=== PATIENT | male | born 1990 | race Caucasian/White ===

== ENCOUNTER 2023-11-04 15:21 | Emergency (ER) | payer SELFPAY ==
[2023-11-04 15:38] LABS: BASOPHILS ABSOLUTE AUTO 0.07 K/uL (0.00-0.20); BASOPHILS PERCENT AUTO 1.2 % (0.0-1.0); EOSINOPHILS ABSOLUTE AUTO 0.12 K/uL (0.00-0.45); HEMATOCRIT 43.2 % (42.0-52.0); HEMOGLOBIN 15.3 g/dL (14.0-18.0); IMMATURE GRAN ABSOLUTE AUTO 0.01 K/uL (0.00-0.05); IMMATURE GRAN PERCENT AUTO 0.2 % (0.0-0.4); LYMPHOCYTES ABSOLUTE AUTO 2.28 K/uL (1.00-4.80); LYMPHOCYTES PERCENT AUTO 37.9 % (24.0-44.0); MEAN CORPUSCULAR HEMOGLOBIN 30.4 pg (28.0-32.0); MEAN CORPUSCULAR HGB CONC 35.4 g/dL (32.0-36.0); MEAN CORPUSCULAR VOLUME 85.7 fL (83.0-99.0); MEAN PLATELET VOLUME 9.5 fL (9.4-12.4); NEUTROPHILS ABSOLUTE AUTO 2.93 K/uL (1.80-7.70); NEUTROPHILS PERCENT AUTO 48.7 % (41.0-71.0); PLATELET COUNT,PLT 282 K/uL (150-400); RED BLOOD CELL COUNT 5.04 M/uL (4.52-5.90); WHITE BLOOD CELL COUNT,WBC 6.01 K/uL (3.9-11.3)
[2023-11-04 16:05] LABS: A/G RATIO 1.1 (0.9-1.6); ALANINE AMINOTRANSFERASE,ALT 19 IU/L (14-63); ALBUMIN 4.2 g/dL (3.4-5.0); ALKALINE PHOSPHATASE 37 U/L (46-116); ASPARTATE AMNIOTRANSFERASE,AST 18 IU/L (15-37); BILIRUBIN TOTAL 0.4 mg/dL (0.2-1.0); BLOOD UREA NITROGEN,BUN 11 mg/dL (7.0-18.0); CALCIUM 9.5 mg/dL (8.5-10.1); CARBON DIOXIDE,CO2 26.6 mmol/L (21.0-32.0); CHLORIDE,CL 103 mmol/L (98-107); CREATININE 1.1 mg/dL (0.8-1.3); EST CRCL DRUG DOSING (CG) 80.86 mL/min; ESTIMATED GFR 91 mL/min (>60); GLUCOSE RANDOM 92 mg/dL (74-106); POTASSIUM,K 3.9 mmol/L (3.5-5.1); PROTEIN TOTAL,TP 7.9 g/dL (6.4-8.2); SODIUM,NA 141 mmol/L (136-148)
[2023-11-04] MEDS: Ketorolac 30 MG/ML SDV IVPUSH ONE (16:35)
[2023-11-04] MEDS: Morphine 4 MG/ML Syringe IVPUSH ONE (16:38)
== END 2023-11-04 17:06 | disposition home or self-care (01) ==
LOC: MW.ED 15:21
DX: R07.9 Chest pain, unspecified (principal)
CPT/HCPCS: 36415; 71045; 80053; 84484; 85025; 93005; 96374; 99285; J1885; 93010; 99284